=== PATIENT | male | born 1960 | race Caucasian/White ===

== ENCOUNTER 2017-12-18 12:22 | Emergency (ER) | payer OTHER ==
[~2017-12-18] VITALS: Ht 175.3 cm; Wt 86.2 kg
[2017-12-18] MEDS ORDERED: LAMICTAL200 M1 (12:47)
== END 2017-12-18 14:53 | disposition home or self-care (01) ==
LOC: ER 12:22
DX: G40.802 Other epilepsy, not intractable, without status epilepticus (principal)